=== PATIENT | male | born 1970 | race Hispanic/Latino ===

== ENCOUNTER 2016-12-20 07:15 | Emergency (ER) | payer MEDICAID ==
[2016-12-20 07:32] VITALS: TEMP 97.6; BMI 27.3
[2016-12-20 08:00] LABS: BASO % 0.6 % (0.0-2.0); EOS # 0.1 K/uL (0.0-0.7); EOS % 1.5 % (0.0-4.0); HEMATOCRIT 38.6 % (35.0-51.0); LYMPH # 0.8 K/uL (1.0-4.3); LYMPH % 16.6 % (20.0-40.0); MEAN CELL VOLUME 86.6 fL (80.0-94.0); MEAN CORPUSCULAR HEMOGLOBIN 28.9 pg (27.0-31.0); MEAN CORPUSCULAR HGB CONC 33.4 g/dL (33.0-37.0); MEAN PLATELET VOLUME 7.5 fL (7.2-11.7); MONO # 0.2 K/uL (0.0-0.8); MONO % 4.7 % (0.0-10.0); RED CELL DISTRIBUTION WIDTH 13.5 % (11.5-14.5); WHITE BLOOD COUNT 4.8 K/uL (4.8-10.8)
[2016-12-20 08:08] LABS: CHLORIDE 103 mmol/L (98-107)
[2016-12-20 08:11] LABS: POTASSIUM 4.2 mmol/L (3.6-5.2); SODIUM 138 mmol/L (132-148)
[2016-12-20 08:12] LABS: ALB/GLOB RATIO 1.3 (1.0-2.1); ALKALINE PHOSPHATASE 71 U/L (38-126); ALT/SGPT 24 U/L (21-72); AST/SGOT 36 U/L (17-59); BILIRUBIN,TOTAL 1.2 mg/dL (0.2-1.3); BLOOD UREA NITROGEN 12 mg/dL (9-20); CARBON DIOXIDE 26 mmol/L (22-30); GFR AFRICAN-AMERICAN > 60; GLUCOSE,RANDOM 121 mg/dL (75-110); TOTAL PROTEIN 6.7 g/dL (6.3-8.3)
[2016-12-20 08:13] LABS: ALCOHOL SERUM < 10 mg/dl (0-10); CALCIUM 8.1 mg/dl (8.6-10.4)
--- NOTE | 2016-12-20 09:13 | C.PDOC ---
History Of Present Illness 46-year-old male, presents to the emergency department [facility], with complaints of agitation. Patient was found walking on street, yelling and being verbally abusive. Patient is uncooperative during evaluation. No acute distress or physical complaints at this time. Chief Complaint (Nursing): Psychiatric Evaluation History Per: Patient, EMS Current Symptoms Are (Timing): Still Present Past Medical History Vital Signs: Last Vital Signs Temp 97.6 F 12/20/16 07:28 Pulse 78 12/20/16 14:40 Resp 20 12/20/16 14:40 BP 109/74 12/20/16 11:44 Pulse Ox 100 12/20/16 14:40 Family History: States: No Known Family Hx - Social History Hx Alcohol Use: (unk) Hx Substance Use: (unk) - Immunization History Hx Tetanus Toxoid Vaccination: (unk) Hx Influenza Vaccination: (unk) Hx Pneumococcal Vaccination: (unk) Review Of Systems Review Of Systems: ROS cannot be obtained secondary to pt's inabilty to answer questions. Physical Exam - Physical Exam Appears: Non-toxic, No Acute Distress, Other (yelling, agitated. ) Skin: Warm, Dry, No Rash Head: Atraumatic, Normacephalic Eye(s): bilateral: Normal Inspection Nose: Normal Neck: Normal ROM Respiratory: No Accessory Muscle Use Extremity: Normal ROM Neurological/Psych: Oriented x3 ED Course And Treatment - Laboratory Results Result Diagrams: 12/20/16 07:50 12/20/16 07:50 O2 Sat by Pulse Oximetry: 97 Disposition - Disposition Referrals: [facility] [Outside] [facility] [Outside] [facility] [Outside] Disposition: HOME/ ROUTINE Disposition Time: 13:15 Condition: GOOD Additional Instructions: Thank you for letting us take care of you today. Your provider was Dr. Amaya. You were treated for agitation. The emergency medical care you received today was directed at your acute symptoms. If you were prescribed any medication, please fill it and take as directed. It may take several days for your symptoms to resolve. Return to the Emergency Department if your symptoms worsen, do not improve, or if you have any other problems. Please contact your doctor or call one of the physicians/clinics you have been referred to that are listed on the Patient Visit Information form that is included in your discharge packet. Bring any paperwork you were given at discharge with you along with any medications you are taking to your follow up visit. Our treatment cannot replace ongoing medical care by a primary care provider (PCP) outside of the emergency department. Thank you for allowing the [facility] team to be part of your care today. Follow up with the clinic for outpatient care. - Clinical Impression Clinical Impression: Schizophrenia - Scribe Statement The provider has reviewed the documentation as recorded by the Josue Peña All medical record entries made by the Josue were at my direction and personally dictated by me. I have reviewed the chart and agree that the record accurately reflects my personal performance of the history, physical exam, medical decision making, and the department course for this patient. I have also personally directed, reviewed, and agree with the discharge instructions and disposition.
[2016-12-20 10:42] LABS: RBC URINE < 1 /hpf (0-3); URINE BILIRUBIN NEGATIVE (NEGATIVE); URINE BLOOD NEGATIVE (NEGATIVE); URINE COLOR Yellow (YELLOW); URINE GLUCOSE (UA) NORMAL (Normal); URINE KETONE NEGATIVE (NEGATIVE); URINE LEUKOCYTE ESTERASE NEG Leu/uL (Negative); URINE PROTEIN NEGATIVE (NEGATIVE); WBC URINE < 1 /hpf (0-5)
[2016-12-20 11:44] VITALS: BP 109/74
[2016-12-20 14:51] VITALS: PULSE 78; RESP 20
[2016-12-20 18:19] VITALS: O2SAT 97
== END 2016-12-20 14:52 | disposition home or self-care (01) ==
LOC: C.ER 07:15
DX: F20.9 Schizophrenia, unspecified (principal)
CPT/HCPCS: 80053; 80320; 80324; 80345; 80346; 80349; 80353; 80358; 80361; 81001; 83992; 85025; 96372; 96374; 96375; 99285; J1630; J2060